=== PATIENT | female | born 1975 | race Caucasian/White ===

== ENCOUNTER 2018-01-24 09:27 | Emergency (ER) | payer SELFPAY ==
[2018-01-24 10:01] VITALS: BP 140/83
--- NOTE | 2018-01-24 10:40 | RAD ---
HISTORY: pain ulnar aspect COMPARISONS: None VIEWS: 3, Frontal, lateral, and oblique views of the left wrist FINDINGS: BONE DENSITY: Normal. BONES: There is no displaced fracture. JOINTS: There is no arthropathy. ALIGNMENT: There is no dislocation. SOFT TISSUES: Unremarkable. OTHER FINDINGS: None. IMPRESSION: NO ACUTE OSSEOUS INJURY. IF SYMPTOMS PERSIST, RECOMMEND REPEAT IMAGING.
--- NOTE | 2018-01-24 12:15 | UC ---
Andrew Nevarez Tenzin, scribed for Brayan Dodson MD on 01/24/18 at 1016 . Hand/Wrist HPI - HPI Summary HPI Summary: Pt is a 42 years old female presenting to the complaining of left wrist/hand pain that occurred yesterday at 7:30 in the morning. She was burnishing the floor yesterday prior and was in pain after but not certain about the specific GISSELLE. She rates the pain at 6/10 and describes it as aching. She notes that the pain aggravates when she is changing position with her hand. Ice, medication and rest helped to alleviate her pain. - History Of Current Complaint Stated Complaint: WRIST INJURY Hx Obtained From: Patient Severity Initially: Moderate Severity Currently: Moderate Pain Intensity: 6 Pain Scale Used: 0-10 Numeric Character Of Pain: Aching Aggravating Factor(s): Movement Alleviating Factor(s): Rest, Ice - Allergies/Home Medications Allergies/Adverse Reactions: Allergies Allergy/AdvReac Type Severity Reaction Status Date / Time Sulfa (Sulfonamide Allergy Hives Verified 01/24/18 10:01 Antibiotics) Home Medications: Home Medications Hydrocortisone 1% CREAM(NF) 01/24/18 [History] Ibuprofen TAB* [Motrin TAB* 600 MG] 01/24/18 [History] Sertraline HCl [Zoloft] 01/24/18 [History Confirmed 01/24/18] PMH/Surg Hx/FS Hx/Imm Hx - Additional Past Medical History Additional PMH: Negative: [place], [place]. - Surgical History Surgical History: None - Family History Known Family History: Positive: Cardiac Disease, Diabetes, Other - Cancer - Social History Alcohol Use: Rare Substance Use Type: None Smoking Status (MU): Never Smoked Tobacco Review of Systems Constitutional: Negative Skin: Negative Eyes: Negative ENT: Negative Respiratory: Negative Cardiovascular: Negative Gastrointestinal: Negative Genitourinary: Negative Motor: Negative Neurovascular: Negative Musculoskeletal: Other: - Wrist/hand pain. Neurological: Negative Psychological: Negative All Other Systems Reviewed And Are Negative: Yes Physical Exam - Summary Physical Exam Summary: General: well-appearing, no pain distress Skin: warm, color reflects adequate perfusion, dry Head: normal Eyes: EOMI, YEE ENT: normal Neck: supple, nontender Respiratory: CTA, breath sounds present Cardiovascular: RRR Abdomen: soft, nontender Bowel: present Musculoskeletal: Tender to palpation at distal ulna aspect, erythematous but no drainage, pain to abduction and adduction of the wrist, Pain to the flexion of the wrist, good capillary refill, there is no sensation deficit, no elbow pain or streaks. Neurological: sensory/motor intact, A&O x3 Psychological: affect/mood appropriate Triage Information Reviewed: Yes Vital Signs: Initial Vital Signs Temp 98.1 F 01/24/18 09:58 Pulse 90 01/24/18 09:58 Resp 14 01/24/18 09:58 BP 140/83 01/24/18 09:58 Pulse Ox 100 01/24/18 09:58 Vital Signs Reviewed: Yes Diagnostics - Radiology Wrist X ray Xray Interpretation: No Acute Changes Radiology Interpretation Completed By: Radiologist - IMPRESSION: NO ACUTE OSSEOUS INJURY. IF SYMPTOMS PERSIST, RECOMMEND REPEAT IMAGING. Dr. Dodson reviewed the report. Hand/Wrist Course/Dx - Course Course Of Treatment: DISCUSSED X-RAY RESULTS WITH THE PATIENT. OUT OF WORK UNTIL 01/28/18. - Differential Dx/Diagnosis Provider Diagnoses: LEFT WRIST PAIN/TENDONITIS Discharge - Sign-Out/Discharge Documenting (check all that apply): Discharge/Admit/Transfer - Discharge Plan Condition: Stable Disposition: HOME Patient Education Materials: Wrist Injury (ED), Tendinitis (ED) Forms: *Work Release Referrals: [facility] [Outside] Additional Instructions: FOLLOW UP WITH YOUR DOCTOR IF NOT COMPLETELY IMPROVED. TAKE IBUPROFEN 600MG EVERY 6 HOURS NEEDED. GET RECHECKED FOR ANY WORSENING OF YOUR CONDITION OR QUESTIONS OR CONCERNS. - Billing Disposition and Condition Condition: STABLE Disposition: Home The documentation as recorded by the Andrew boogie Tenzin accurately reflects the service I personally performed and the decisions made by me, Brayan Dodson MD.
== END 2018-01-24 11:33 | disposition home or self-care (01) ==
LOC: MERGE 09:27 → UCEAST 09:27
DX: M65.842 Other synovitis and tenosynovitis, left hand (principal); M25.532 Pain in left wrist; Z88.2 Allergy status to sulfonamides; Z82.49 Family history of ischemic heart disease and other diseases of the circulatory system; Z83.3 Family history of diabetes mellitus; Z80.9 Family history of malignant neoplasm, unspecified
CPT/HCPCS: 99211; G0463

== ENCOUNTER 2019-10-01 10:32 | Emergency (ER) | payer BC, OTHER ==
[2019-10-01 10:51] VITALS: BP 107/68
--- NOTE | 2019-10-01 11:38 | UC ---
Laceration HPI - HPI Summary HPI Summary: YESTERDAY AFTERNOON PATIENT JUMPED IN FRONT OF THE SLED HER GRANDKIDS WERE ON TO BLOCK IT FROM GOING INTO THE ROAD. SHE GOT KNOCKED OVER AND STRUCK HER CHIN ON THE GROUND. TEETH WENT THROUGH HER LOWER LIP. NO LOC. PT DENIES ANY [place], N/V , VISUAL DISTURBANCES. DID NOT SEEK MEDICAL ATTENTION AT THAT TIME BUT SINCE THEN HER LOWER LIP HAS BECOME MORE SWOLLEN AND PAINFUL. - History Of Current Complaint Chief Complaint: UCLaceration Stated Complaint: LACERATION ON LIP & CHIN Time Seen by Provider: 10/01/19 11:05 Hx Obtained From: Patient Hx Last Menstrual Period: hyster Laceration Location: Face - LOWER LIP Mechanism Of Injury: Blunt Trauma Onset/Duration: Sudden Onset, Lasting Hours, Still Present Severity: Moderate Pain Intensity: 8 Pain Scale Used: 0-10 Numeric Aggravating Factors: Nothing - Allergies/Home Medications Allergies/Adverse Reactions: Allergies Allergy/AdvReac Type Severity Reaction Status Date / Time Sulfa (Sulfonamide Allergy Hives Verified 10/01/19 10:51 Antibiotics) Home Medications: Home Medications Escitalopram * [Lexapro 10 mg (NF)] 1 tab PO DAILY 10/01/19 [History Confirmed 10/01/19] Estradiol [Divigel] 1 patch .ROUTE 10/01/19 [History] buPROPion HCl [Bupropion Xl] 1 tab PO DAILY 10/01/19 [History Confirmed 10/01/19 ] PMH/Surg Hx/FS Hx/Imm Hx Previously Healthy: Yes - Surgical History Surgical History: None - Family History Known Family History: Positive: Cardiac Disease, Diabetes, Other - Cancer - Social History Alcohol Use: Rare Substance Use Type: None Smoking Status (MU): Never Smoked Tobacco Review of Systems All Other Systems Reviewed And Are Negative: Yes Constitutional: Positive: Negative Skin: Positive: Other - LOWER LIP LAC Respiratory: Positive: Negative Cardiovascular: Positive: Negative Gastrointestinal: Positive: Negative Neurological/Mental Status: Positive: Negative Physical Exam Triage Information Reviewed: Yes Appearance: Well-Appearing, No Pain Distress, Well-Nourished Vital Signs: Initial Vital Signs Temp 97.7 F 10/01/19 10:48 Pulse 72 10/01/19 10:48 Resp 16 10/01/19 10:48 BP 107/68 10/01/19 10:48 Pulse Ox 100 10/01/19 10:48 Vital Signs Reviewed: Yes Eyes: Positive: Conjunctiva Clear ENT: Positive: Hearing grossly normal Neck: Positive: Supple Respiratory: Positive: No respiratory distress, No accessory muscle use Cardiovascular: Positive: Pulses Normal Abdomen Description: Positive: Soft Musculoskeletal: Positive: ROM Intact, Other: - NO TENDERNESS OVER TMJ OR MANDIBLE Neurological: Positive: Alert Psychological: Positive: Age Appropriate Behavior Skin: Positive: Other - 1CM LACERATION INNER LOWER LIP ALREADY HEALING OVER. 5MM LACERATION OUTER LOWER LIP ALSO HEALING OVER. SOME CRUST. LOWER LIP EDEMATOUS. Laceration Course/Dx - Course/Dx Course Of Treatment: WOUNDS HAVE ALREADY STARTED TO HEAL BY SECONDARY INTENTION. NO INDICATION FOR ANY REPAIR TODAY. WILL COVER FOR ANY INFECTION WITH AUGMENTIN TWICE DAILY FOR 10 DAYS. ADVISED IBUPROFEN FOR DISCOMFORT. ICE TO HELP WITH SWELLING AND INFLAMMATION. FOLLOW-UP IF NEEDED. - Diagnosis Provider Diagnosis: Laceration of lower lip Discharge ED - Sign-Out/Discharge Documenting (check all that apply): Patient Departure All imaging exams completed and their final reports reviewed: No Studies - Discharge Plan Condition: Stable Disposition: HOME Prescriptions: Amoxicillin/Clavulanate TAB* [Augmentin TAB 875*] 875 mg PO BID #20 tab Patient Education Materials: Laceration (ED) Referrals: Linsey Glover PA [Primary Care Provider] - If Needed Additional Instructions: YOUR LOWER LIP WOUND IS ALREADY STARTING TO HEAL OVER. NO INDICATION FOR ANY REPAIR TODAY. TAKE THE ANTIBIOTICS TWICE DAILY PRESCRIBED TO HELP PREVENT INFECTION FROM SETTING IN. THE SWELLING SHOULD IMPROVE OVER THE NEXT FEW DAYS. YOU MAY APPLY ICE NEEDED. IBUPROFEN FOR DISCOMFORT. SEEK REEVALUATION IF YOU DEVELOP SPREADING REDNESS OF THE SKIN, INCREASED PAIN, PURULENT DRAINAGE, FEVER OR ANY OTHER CONCERNING SYMPTOMS. - Billing Disposition and Condition Condition: STABLE Disposition: Home
== END 2019-10-01 11:38 | disposition home or self-care (01) ==
LOC: UCEAST 10:32
DX: S01.511A Laceration without foreign body of lip, initial encounter (principal); Z88.2 Allergy status to sulfonamides; W18.30XA Fall on same level, unspecified, initial encounter; Y92.9 Unspecified place or not applicable
CPT/HCPCS: 99212; G0463